=== PATIENT | female | born 1970 ===

== ENCOUNTER 2021-11-09 13:32 | Emergency (ER) | payer OTHER ==
[2021-11-09] MEDS ORDERED: NORFLEX 100 MG100 MG PO (15:36)
[2021-11-09] MEDS ORDERED: NAPROXEN500 MG PO (15:36)
== END 2021-11-09 15:55 | disposition home or self-care (01) ==
LOC: ER1 13:32
DX: M54.41 Lumbago with sciatica, right side (principal); G89.29 Other chronic pain; E11.9 Type 2 diabetes mellitus without complications; I10 Essential (primary) hypertension
CPT/HCPCS: 96372; 99283; J1100; J1885